=== PATIENT | female | born 1990 | race Caucasian/White ===

== ENCOUNTER 2019-03-08 22:14 | Emergency (ER) | payer BC, OTHER ==
[~2019-03-08] VITALS: Ht 165.1 cm; Wt 78.0 kg
[~2019-03-08 22:14] MED LIST: IBUP-1222 PO; OXYC-302 PO
[2019-03-08 22:36] LABS: BASOPHILS # (AUTO) 0.06 x10^3/uL (0-0.1); BASOPHILS % (AUTO) 1 % (0-1); EOSINOPHILS # (AUTO) 0.21 x10^3/uL (0-0.4); EOSINOPHILS % (AUTO) 3 % (1-7); LYMPHOCYTES # (AUTO) 2.31 x10^3/uL (1-3.4); LYMPHOCYTES % (AUTO) 27 % (22-44); MD NO; MEAN CORPUSCULAR HEMOGLOBIN 28.5 pg (27.0-34.8); MEAN CORPUSCULAR HGB CONC 32.9 g/dL (32.4-35.8); MEAN CORPUSCULAR VOLUME 86.8 fL (80-100); MEAN PLATELET VOLUME 8.3 fL (7.4-10.4); MONOCYTES # (AUTO) 0.49 x10^3/uL (0.2-0.8); MONOCYTES % (AUTO) 6 % (2-9); NEUTROPHILS # (AUTO) 5.49 x10^3/uL (1.8-6.8); NEUTROPHILS % (AUTO) 64 % (42-75); PLATELET COUNT 276 x10^3/uL (130-400); RED BLOOD COUNT 4.41 x10^6/uL (3.82-5.3); RED CELL DISTRIBUTION WIDTH 13.3 % (9.6-15.2)
--- NOTE | 2019-03-09 00:21 | NUR ---
PT STOOD UP TO AMBULATE TO CHECK TO SEE IF SHE HAS ANY INCREASED BLEEDING WITH POSITION CHANGE. PT DENIED INCREASE IN BLEEDING
[2019-03-09 01:26] VITALS: BP 128/64
== END 2019-03-09 01:31 | disposition home or self-care (01) ==
LOC: ED 03-09 01:25
DX: O20.0 Threatened abortion (principal); Z3A.14 14 weeks gestation of pregnancy
CPT/HCPCS: 36415; 76815; 84702; 85025; 86901; 99284